=== PATIENT | female | born 2000 | race African-American/Black ===

== ENCOUNTER 2021-05-22 22:03 | Emergency (ER) | payer SELFPAY ==
[~2021-05-22] VITALS: Ht 180.3 cm; Wt 68.2 kg
[2021-05-22 22:18] VITALS: BP 115/58
[2021-05-22] MEDS ORDERED: AZIT250T6 PO (22:25)
--- NOTE | 2021-05-22 22:25 | PHYS DOC ---
Adult General Chief Complaint Chief Complaint: EARACHE/EAR PAIN [facility] HPI Patient is a 20-year-old female who presents with a chief complaint of earache Review of Systems Review of Systems Review of systems otherwise unremarkable except noted in HPI Physical Exam Physical Exam Constitutional: Well developed, well nourished, no acute distress, non-toxic appearance. [] HENT: Normocephalic, atraumatic, bilateral external ears normal, oropharynx moist, Eyes: conjunctiva normal, no discharge. [] Neck: Normal range of motion, no tenderness, supple, no stridor. [] Cardiovascular:Heart rate regular rhythm, no murmur [] Lungs & Thorax: Bilateral breath sounds clear to auscultation [] Extremities: No tenderness, no cyanosis, no clubbing, ROM intact, no edema. [] Neurologic: Alert and oriented X 3, normal motor function, normal sensory function, no focal deficits noted. [] Psychologic: Affect normal, judgement normal, mood normal. [] EKG EKG [] Radiology/Procedures Radiology/Procedures [] Heart Score C/O Chest Pain: No Risk Factors: Risk Factors: DM, Current or recent (<one month) smoker, HTN, HLP, family history of CAD, obesity. Risk Scores: Risk Factors: DM, Current or recent (<one month) smoker, HTN, HLP, family history of CAD, obesity. Course & Med Decision Making Course & Med Decision Making Patient is a 20-year-old female presents with earache Vital signs . Physical exam noted above. Dragon Disclaimer Dragon Disclaimer This electronic medical record was generated, in whole or in part, using a voice recognition dictation system. Departure Departure: Impression: Primary Impression: Earache Additional Impression: Right otitis media Disposition: HOME / SELF CARE / HOMELESS Condition: STABLE Referrals: JADON ZEPEDA Patient Instructions: Otitis Media, Adult Additional Instructions: Fever coming into the emergency department tonight allowing us to take care of you. Please read the attached information carefully go over things we discussed. Please take your antibiotics as prescribed and until gone. Please begin a Tylenol, ibuprofen and Benadryl regimen over the next several days as needed. Please follow-up on Monday with your primary care physician update on your ED visit and set up a follow-up. Please come back with new or concerning symptoms as we discussed. Scripts Azithromycin (AZITHROMYCIN TABLET) 250 Mg Tablet 250 MG PO DAILY for otitis for 4 Days, #4 TAB 0 Refills Prov: KATARINA SIMPSON MD 05/22/21 Problem Qualifiers KATARINA SIMPSON MD May 22, 2021 22:25
[2021-05-22] MEDS ORDERED: ACETAMINOPHEN 500 MG TABLET PO ONE (23:00)
[2021-05-22] MEDS ORDERED: AZITHROMYCIN 250 MG TABLET. PO ONE (23:00)
[2021-05-22] MEDS ORDERED: IBUPROFEN 600 MG TABLET. PO ONE (23:00)
== END 2021-05-22 22:37 | disposition home or self-care (01) ==
LOC: ER 22:03
DX: H66.91 Otitis media, unspecified, right ear (principal)
CPT/HCPCS: 99284

== ENCOUNTER 2021-07-08 11:50 | Emergency (ER) | payer OTHER ==
[~2021-07-08] VITALS: Ht 180.3 cm; Wt 81.8 kg
[~2021-07-08 11:50] MED LIST: AZIT250T6 PO
[2021-07-08 12:08] VITALS: BP 111/68
[2021-07-08] MEDS ORDERED: IBUPROFEN 600 MG TABLET. PO ONE (12:45)
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
== END 2021-07-08 13:16 | disposition home or self-care (01) ==
LOC: ER 11:50
DX: R51.9 Headache, unspecified (principal); Z88.0 Allergy status to penicillin; Z88.8 Allergy status to other drugs, medicaments and biological substances
CPT/HCPCS: 99282